=== PATIENT | female | born 1980 | race Caucasian/White ===

== ENCOUNTER 2020-12-17 18:12 | Emergency (ER) | payer OTHER ==
[2020-12-17 18:33] VITALS: BMI 23.4
[2020-12-17 20:21] VITALS: BP 117/74; PULSE 95; TEMP 98.9
== END 2020-12-17 20:47 | disposition home or self-care (01) ==
LOC: JER 18:12
DX: F41.0 Panic disorder [episodic paroxysmal anxiety] (principal)
CPT/HCPCS: 93005; 93010; 99283-25